=== PATIENT | female | born 1985 | race Caucasian/White ===

== ENCOUNTER 2024-05-19 09:20 | Emergency (ER) | payer BC, SELFPAY ==
[2024-05-19 09:23] VITALS: BP 120/67
--- NOTE | 2024-05-19 09:33 | ED.GENMED ---
History of Present Illness
<Sheryl Vuong PA-C - Last Filed: 05/19/24 17:24>
General
Chief Complaint: Abdominal Pain
Source: patient
Exam Limitations: none
Time Seen by Provider: 05/19/24 09:27
Nursing documentation reviewed up to this point in time: agreed with
History of Present Illness
History of Present Illness:
Patient is a 38 y.o female presenting to the emergency department for evaluation following episode of upper abdominal pain this morning. Patient states she was at soccer practice when she had an acute onset pain in her upper abdomen that was
severe. She reports pain in her epigastric area with some radiation around to her mid back. She noticed shallow breathing at the time due to discomfort. Pain lasted about 50 minutes and then dissipated. She did feel very bloated prior to pain.
Patient denies any associated fever, chills, nausea, vomiting. No urinary symptoms.
Time patient only endorses mild discomfort in her upper abdomen
Patient had 1 other similar episode a few months ago.
No history of abdominal surgeries.
Past History
<Sheryl Vuong PA-C - Last Filed: 05/19/24 17:24>
Past History
ED Past Medical History: Other (Migraine headache)
ED Past Surgical History: None
Social History
Tobacco: Non-smoker
Alcohol: None
Drug: None
Personal: Single
Living: with family
Family History
Family History: Other (Maternal aunt and grandmother with history of brain aneurysm)
Review of Systems
<Sheryl Vuong PA-C - Last Filed: 05/19/24 17:24>
Review of Systems
Allergies reviewed?: Yes
All Other Systems: ROS reviewed and negative except as documented in HPI and ROS
Phy Exam
<Sheryl Vuong PA-C - Last Filed: 05/19/24 17:24>
Physical Exam
Physical Exam:
Vitals: Patient's vital signs are stable. Afebrile
General: Patient is well appearing, no acute distress. Nontoxic appearing
Skin: Warm and dry, no rashes or lesions
Head: Normocephalic, atraumatic
Eyes: Sclera nonicteric. EOMs intact. No nystagmus.
Throat: Protecting airway
Neck: Normal ROM, no cervical spine tenderness, no meningismus
Cardiac: Regular rate and rhythm, no murmurs.
Pulm: Normal respiratory effort, no wheezes, rales, rhonchi heard on exam.
Abdomen: Abdomen soft. Mild epigastric and RUQ tenderness without rebound tenderness or guarding. No CVA tenderness
Extremities: No evidence of cyanosis or edema. Great distal pulses.
Neuro: Grossly intact.
Psychiatric: Normal affect.
Course
<Sheryl Vuong PA-C - Last Filed: 05/19/24 17:24>
Orders/Labs/Results
Orders:
Orders
05/19/24 09:45
0.9% Sodium Chloride 1000 ml [Nss] 1,000 ml IV BOLUS
Ketorolac [Toradol] 15 mg IV NOW STA
US Abdomen Complete/Upper Urgent
Comment:
Reason For Exam: Upper abdominal pain
05/19/24 09:46
Test Result ONCE
05/19/24 11:09
Complete Blood Count/With Diff Routine
Comprehensive Metabolic Panel Routine
HCG, Serum Qualitative Screen Routine
Lipase Routine
05/19/24 12:10
Pantoprazole [Protonix IV] 40 mg IV NOW STA
Abnormal Lab Results
05/19/24
11:09
WBC 11.8 H 10^3/uL
(4.8-10.8)
MCV 80.7 L fL
(81.0-99.0)
Absolute Neuts (auto) 8.5 H 10^3/uL
(1.4-6.5)
Absolute Monos (auto) 0.7 H 10^3/uL
(0.1-0.6)
Lymphocytes % 19.6 L %
(20.5-51.1)
Glucose 100 H mg/dl
(70-99)
AST 53 H U/L
(14-36)
05/19/24 11:09
05/19/24 11:09
Vital Signs
Initial and Last Documented VS:
Initial Vital Signs
Temp Pulse Resp BP Pulse Ox
97.6 F 78 18 120/67 99
05/19/24 09:23 05/19/24 09:23 05/19/24 09:23 05/19/24 09:23 05/19/24 09:23
Last Documented Vital Signs
Temp Pulse Resp BP Pulse Ox
97.6 F 60 16 100/79 100
05/19/24 09:23 05/19/24 12:15 05/19/24 12:15 05/19/24 12:15 05/19/24 12:15
<Tiffany Aly MD - Last Filed: 05/19/24 11:25>
Orders/Labs/Results
Orders:
Orders
05/19/24 09:45
0.9% Sodium Chloride 1000 ml [Nss] 1,000 ml IV BOLUS
Ketorolac [Toradol] 15 mg IV NOW STA
US Abdomen Complete/Upper Urgent
Comment:
Reason For Exam: Upper abdominal pain
05/19/24 09:46
Test Result ONCE
05/19/24 11:09
Complete Blood Count/With Diff Routine
Comprehensive Metabolic Panel Routine
HCG, Serum Qualitative Screen Routine
Lipase Routine
05/19/24 12:10
Pantoprazole [Protonix IV] 40 mg IV NOW STA
Abnormal Lab Results
05/19/24
11:09
WBC 11.8 H 10^3/uL
(4.8-10.8)
MCV 80.7 L fL
(81.0-99.0)
Absolute Neuts (auto) 8.5 H 10^3/uL
(1.4-6.5)
Absolute Monos (auto) 0.7 H 10^3/uL
(0.1-0.6)
Lymphocytes % 19.6 L %
(20.5-51.1)
Glucose 100 H mg/dl
(70-99)
AST 53 H U/L
(14-36)
05/19/24 11:09
05/19/24 11:09
Vital Signs
Initial and Last Documented VS:
Initial Vital Signs
Temp Pulse Resp BP Pulse Ox
97.6 F 78 18 120/67 99
05/19/24 09:23 05/19/24 09:23 05/19/24 09:23 05/19/24 09:23 05/19/24 09:23
Last Documented Vital Signs
Temp Pulse Resp BP Pulse Ox
97.6 F 60 16 100/79 100
05/19/24 09:23 05/19/24 12:15 05/19/24 12:15 05/19/24 12:15 05/19/24 12:15
<Sheryl Vuong PA-C - Last Filed: 05/19/24 17:24>
MDM/Problems Addressed
Differential Diagnosis Includes:
Not limited to: Biliary colic, cholecystitis, choledocholithiasis, pancreatitis, gastritis, gastric ulcer
MDM/Problems Addressed:
38-year-old female presenting following episode of severe upper abdominal pain lasting about 15 minutes this morning. No associated nausea, vomiting, fever. Patient does report 1 history of similar pain about a month ago. Pain mainly resolved at
this time�only endorsing mild upper abdominal discomfort. Vitals are stable, patient is afebrile on arrival. Physical exam as above. Patient is very well-appearing, nontoxic and conversational. Abdomen is soft with mild epigastric/right upper
quadrant abdominal tenderness. No rebound tenderness or guarding. Heart regular rate and rhythm. Lungs clear bilaterally. Differential broad at this time but include biliary colic, cholecystitis, choledocholithiasis, pancreatitis, GERD. Will
check basic labs, abdominal ultrasound. Will treat pain, give IV fluids. Will monitor and reassess
Chronic conditions affecting care:
N/A
Acute Exacerbation and/or Progression of Chronic Illness:
N/A
<Sheryl Vuong PA-C - Last Filed: 05/19/24 17:24>
*Radiology
Radiology exam reviewed: preliminary read by ED provider and radiology read reviewed (No evidence of gallstones, bile duct dilatation, or acute cholecystitis)
*Pulse Oximetry
Patient hypoxic: no
*EKG
Interpreted by ED Provider?: NA
*Morning Show Newscast Producer Interpretation
Rate: Morning Show Newscast Producer- N/A
*Critical Care Note
Total Time (30-74mins, 75-104mins- exclusive of procedures): Not Applicable
<Sheryl Vuong PA-C - Last Filed: 05/19/24 17:24>
Patient Management
Escalation/DeEscalation of care consider admission/obs:
Admit not indicated
<Sheryl Vuong PA-C - Last Filed: 05/19/24 17:24>
Update Note
Update Note:
Update: Labs reviewed. No clinically significant abnormalities noted. Lipase normal. is negative. Ultrasound report reviewed which shows no evidence of gallstones, biliary duct dilation, or findings suggestive of acute cholecystitis.
Patient asymptomatic at this time and currently without any discomfort. All symptoms by history are very consistent with biliary colic�given negative ultrasound it is possible symptoms are related to a gastritis versus ulcer. Will treat patient
Protonix and recommend GI follow-up outpatient. Patient comfortable with plan and eager for discharge. Patient seen with attending physician.
ED Attending Note
<Sheryl Vuong PA-C - Last Filed: 05/19/24 17:24>
-
Portions of this chart may have been created with voice recognition software.� Occasional wrong word or��sound alike� substitutions may have occurred due to the inherent limitations of voice recognition software.
<Tiffany Aly MD - Last Filed: 05/19/24 11:25>
ED Attending Note
Patient seen and examined by attending physician: Yes
I performed the substantive portion of visit, reviewed & personally made and approve the management plan that is documented in note by myself or TERESA.: Yes
ED Attending Note:
Patient appears nontoxic and well. She describes acute onset of severe upper abdominal pain which was nearly unbearable but is now described as mild, 2 out of 10. Patient denies nausea, diarrhea and constipation. On exam, patient is breathing
comfortably and abdomen is soft throughout. There is no specific areas of tenderness. Patient will undergo an ultrasound to be evaluated for gallbladder disease. On differential is also gastritis or gastric ulcer.
Discharge Plan
Departure
Patient Disposition: Home (Routine Discharge)
Date of Disposition: 05/19/24
Time of Disposition: 12:11
Patient with high blood pressure during this ER visit?: No
Condition: Good
Covid-19: Not Applicable
Discharge Problem:
Abdominal pain
Instructions: Acid Reflux and GERD in Adults (DC), Abdominal Pain, Adult ED
Prescriptions:
New
pantoprazole [Protonix] 40 mg tablet,delayed release (DR/EC)
40 mg PO DAILY Qty: 14 0RF
No Action
alprazolam 0.5 MG tablet
0.5 mg PO Q6HPRN PRN (Reason: anxiety)
Referrals:
Artis Ellis DO [Family Provider] -
Atif Miller MD [Active] - Next open appointment
Activity Restrictions/Additional Instructions:
RETURN TO THE EMERGENCY DEPARTMENT WITH ANY FEVERS, CHILLS, WORSENING/PERSISTENT ABDOMINAL PAIN, INTRACTABLE NAUSEA/VOMITING, SHORTNESS OF BREATH, WORSENING IN CURRENT SYMPTOMS, OR ANY OTHER CONCERNS
-The prescription has been sent to your pharmacy. You should take this daily before breakfast for the next 2 weeks.
-It is important stay well-hydrated. You can take Tylenol as needed for any pain.
-Follow-up with primary care for further evaluation/management. A referral has been given to you for a GI doctor. You should follow with them for further evaluation of symptoms. You may require further imaging/testing
Monitor symptoms closely and return to the emergency department with any acute worsening/new symptoms
Interventions
Interventions:
*Risk Screen - Suicide Last Done: 05/19/24 09:23
*General Assessment Last Done: 05/19/24 09:23
*Neglect/Abuse Screening Last Done: 05/19/24 09:23
ED- Fall Risk Assessment Last Done: 05/19/24 10:10
*ED COVID-19 Vaccine History Last Done: 05/19/24 10:10
*Nursing Disposition Last Done: 05/19/24 12:33
AX-Yxytlr-Vzonjupzna Assessment Last Done: 05/19/24 10:10
Discharge Date and Time
Discharge Date/Time: 05/19/24 12:35
Print Language: DIVEHI
--- NOTE | 2024-05-19 09:38 | EDRN ---
Anival WEBBER in room w/ pt at this time.
[2024-05-19 10:10] VITALS: BP 98/75; BMI 29.7
--- NOTE | 2024-05-19 10:10 | EDRN ---
This RN attempted IV access twice and was in vein both times. First attempt had great blood return and allowed blood draw but would not advance and afterwards infiltrated. Second stick entered w/ excellent blood return but again would not thread
into vein then thread easily into vein and flushed w/ ease but when attempted to give med no blood return and clotted off. IV was removed. Called VAT RN IV team when ED PCT came to room to take pt to US. Pt decided at that time not to get medication
and IVF even though she admitted she was dehydrated as she did not wish another IV attempt. IV VAT RN was cancelled when she answered page and told not to come and pt sent to US. Anival WEBBER was informed that pt has not IV access at this time and
therefore declined pain meds and IVF.
--- NOTE | 2024-05-19 10:36 | EDRN ---
CBC was clotted and CMP was hemolyzed per lab and need to be redrawn. Am awaiting return of pt to speak w/ pt and call IV VAT RN again.
--- NOTE | 2024-05-19 10:51 | EDRN ---
Pt agreed to having IV VAT RN attempt IV access and blood draw to receive pain med and IV fluids. IV VAT RN paged at this time.
--- NOTE | 2024-05-19 10:56 | EDRN ---
Both arms wrapped in warm blankets.
[2024-05-19] MEDS: NSS 1000 IV (11:17)
--- NOTE | 2024-05-19 11:17 | EDRN ---
Dr. Aly in room w/pt at this time.
[2024-05-19] MEDS: TORADOL 15 MG IV (11:18)
[2024-05-19 11:21] VITALS: BP 99/84
[2024-05-19 11:29] LABS: % Basophils 0.6 % (0-2); % Eosinophils 0.9 % (0-6); % Immature Granulocytes 0.3 % (0-0.5); % Lymphocytes 19.6 % (20.5-51.1); % Monocytes 6.1 % (1.7-9.3); % Neutrophils 72.5 % (42.2-75.2); Absolute Basophils 0.1 10^3/uL (0-0.2); Absolute Eosinophils 0.1 10^3/uL (0-0.7); Absolute Lymphocytes 2.3 10^3/uL (1.2-3.4); Absolute Monocytes 0.7 10^3/uL (0.1-0.6); Absolute Neutrophils 8.5 10^3/uL (1.4-6.5); Hematocrit 41.1 % (37.0-47.0); Mean Corp Hgb Conc. 34.1 g/dL (33.0-37.0); Mean Corpuscular Hgb 27.5 pg (27.0-31.0); Mean Corpuscular Volume 80.7 fL (81.0-99.0); Mean Platelet Volume 9.8 fL (7.4-10.4); Nucleated Red Blood Cells % 0 %; Platelet Count 306 10^3/uL (130-400); Red Blood Cell Count 5.09 10^6/uL (4.20-5.40); Red Cell Dist. Width 13.4 % (11.5-14.5); White Blood Cell Count 11.8 10^3/uL (4.8-10.8)
[2024-05-19 11:32] LABS: HCG, Serum Qualitative Screen Negative
[2024-05-19 11:41] LABS: ALT (SGPT) 33 U/L (0-35); AST (SGOT) 53 U/L (14-36); Albumin 4.9 g/dl (3.5-5.0); Alkaline Phosphatase 42 U/L (38-126); Blood Urea Nitrogen 17 mg/dl (7-17); Calcium 9.9 mg/dl (8.4-10.2); Carbon Dioxide 25 mmol/L (22-30); Chloride 104 mmol/L (98-107); Estimated Creatinine Clearance 124 ml/min; Glucose 100 mg/dl (70-99); Lipase 115 U/L (23-300); Potassium 4.7 mmol/L (3.5-5.1); Sodium 141 mmol/L (135-145); Total Bilirubin 0.7 mg/dl (0.2-1.3); Total Protein 7.6 g/dl (6.3-8.2); eGFR > 60.00
[2024-05-19 12:15] VITALS: BP 100/79
[2024-05-19] MEDS: PROTONIX IV 40 MG IV (12:20)
== END 2024-05-19 12:35 | disposition home or self-care (01) ==
LOC: EMR 09:20
PROVIDERS: EMERGENCY PHYSICIAN Emergency Medicine; FAMILY PHYSICIAN Family Medicine
DX: R10.10 Upper abdominal pain, unspecified (principal); R10.13 Epigastric pain; M54.9 Dorsalgia, unspecified; R14.0 Abdominal distension (gaseous); G43.909 Migraine, unspecified, not intractable, without status migrainosus; J45.909 Unspecified asthma, uncomplicated; Z88.5 Allergy status to narcotic agent
CPT/HCPCS: 99284; 96374; 96375; 96361; 76700; 80053; 83690; 84703; 85025